=== PATIENT | male | born 1990 | race Caucasian/White ===

== ENCOUNTER 2021-05-08 02:42 | Emergency (ER) | payer MEDICAID ==
[~2021-05-08] VITALS: Ht 172.7 cm; Wt 95.3 kg
--- NOTE | 2021-05-08 02:42 | NUR ---
PT MARIANA BONNERS. TAKEN TO BED 4
[2021-05-08 02:44] VITALS: BP 137/88
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
--- NOTE | 2021-05-08 02:47 | NUR ---
Dr. Higuera examining patient.
[2021-05-08] MEDS ORDERED: LORazepam 1 MG TAB PO ONE (03:10)
--- NOTE | 2021-05-08 03:35 | NUR ---
Patient discharged with v/s stable. Written and verbal after care instructions given and explained. Patient verbalized understanding. Ambulatory with steady gait. All questions addressed prior to discharge. Advised to follow up with PMD.
== END 2021-05-08 03:35 | disposition home or self-care (01) ==
LOC: MED 02:42
DX: F41.9 Anxiety disorder, unspecified (principal)
CPT/HCPCS: 99283